=== PATIENT | male | born 2005 | race African-American/Black ===

== ENCOUNTER 2024-10-31 17:34 | Emergency (ER) | payer BC, MEDICAID, OTHER ==
[~2024-10-31] VITALS: Ht 180.3 cm; Wt 77.3 kg
[2024-10-31 20:43] VITALS: BP 134/63; TEMP 97.9; O2SAT 100
[2024-10-31] MEDS: IBUPROFEN 600 MG TAB PO ONE (20:43)
== END 2024-10-31 20:53 | disposition home or self-care (01) ==
LOC: M ED 17:34
DX: S02.2XXA Fracture of nasal bones, initial encounter for closed fracture (principal); W21.03XA Struck by baseball, initial encounter; Y92.320 Baseball field as the place of occurrence of the external cause; Y93.64 Activity, baseball; Y99.9 Unspecified external cause status; Z91.013 Allergy to seafood

== ENCOUNTER 2024-11-10 10:40 | Day surgery (SDC) | payer BC ==
[~2024-11-10] VITALS: Ht 180.3 cm; Wt 77.1 kg
[~2024-11-10 10:40] MED LIST: LIDOCAINE 2% 100 MG/5 ML SDV (FOR ANES.) As Ordered ONE; MIDAZOLAM INJ 2 MG/2 ML VIAL As Ordered ONE; ROCURONIUM BROMIDE 50MG/5ML VIAL As Ordered ONE
[2024-11-10] MEDS ORDERED: LR 1,000 ML IV SCH ×2 (11:00→11:55)
[2024-11-10] MEDS: COCAINE 4% 4 ML NASAL SOLUTION BTL As Ordered ONE (11:43)
[2024-11-10] MEDS ORDERED: ACETAMINOPHEN 1000MG/100ML IV BAG As Ordered ONE (11:44)
[2024-11-10] MEDS ORDERED: ONDANSETRON 4MG 2ML VIAL As Ordered ONE (11:44)
[2024-11-10] MEDS ORDERED: dexAMETHasone 4 MG/ML 1 ML VIAL As Ordered ONE (11:44)
[2024-11-10] MEDS: LIDOCAINE W/EPINEPHrine 1% 20 ML VIAL As Ordered ONE (11:47)
[2024-11-10] MEDS ORDERED: SUGAMMADEX SODIUM 500 MG/5 ML VIAL As Ordered ONE (11:48)
[2024-11-10] MEDS ORDERED: ONDANSETRON 4MG 2ML VIAL IV PRN (11:55)
[2024-11-10] MEDS ORDERED: HYDROMORPHONE HCL 0.5 MG/0.5 ML SYRINGE IV PRN (11:55)
[2024-11-10 12:46] VITALS: BP 147/81; TEMP 97.1; O2SAT 98
== END 2024-11-10 13:05 | disposition home or self-care (01) ==
LOC: M SDC 10:40
PROVIDERS: ATTEND Otolaryngology
DX: S02.2XXA Fracture of nasal bones, initial encounter for closed fracture (principal); Z91.013 Allergy to seafood
CPT/HCPCS: 21320; C9143; J0131; J1100; J2250; J2405; J3010